=== PATIENT | male | born 1965 | race Caucasian/White ===

== ENCOUNTER 2024-05-06 08:57 | Emergency (ER) | payer BC ==
--- NOTE | 2024-05-06 10:25 | RAD REPORT ---
EXAM: XR Knee Left 3 View HISTORY: [facility] Bed Name: 14 COMPARISON: None TECHNIQUE: 3 views of the left knee were obtained. FINDINGS: No knee effusion is seen. There is no evidence of acute fracture or dislocation. Moderate tricompartmental degenerative changes with joint space loss most pronounced along the medial weightbearing compartment. Cortical irregularity at the tibial tuberosity suggesting remote sequelae of [place]-Schlatter's disease. No soft tissue swelling or other soft tissue abnormality is present. IMPRESSION: No evidence of acute osseous abnormality. Chronic findings as above.
--- NOTE | 2024-05-06 10:42 | EDPHYS ---
Physician Documentation [facility] Name: Gualberto Breaux Age: 58 yrs Sex: Male : 1965 Arrival Date: 05/06/2024 Time: 08:57 Bed 14 Private MD: ED Physician Bhanu Ballesteros HPI: 05/06 10:15 This 58 yrs old Male presents to ER via Ambulatory with complaints of Knee dr5 Pain - left. 10:15 Onset: The symptoms/episode began/occurred 4 day(s) ago. Patient is a 58 year old male dr5 presenting with left knee pain that's been going on for the past four days after he stood up incorrectly and twisted to the left. Patient reports that his pain is on the outside of the knee and is having issue extending the left leg. Patient reports he has had surgery on his left knee back in 1989 for a torn MCL. Patient reports he has been using crutches and wearing a knee brace with comfort. Patient has an appointment on 05/09/24 with PCP.. Historical: - Allergies: 09:11 No Known Allergies; ss - Home Meds: 09:11 Metformin [Active]; ss - PMHx: 09:11 Diabetes mellitus; ss - PSHx: 09:11 L knee; ss - Infectious Disease History:: Denies. - Social history:: Smoking status: Patient denies any tobacco usage or history of. Patient/guardian denies using alcohol. ROS: 10:15 Constitutional: as per hpi dr5 Exam: 10:15 Constitutional: This is a well developed, well nourished patient who is awake, alert, dr5 and in no acute distress. Head/Face: Normocephalic, atraumatic. Eyes: Pupils equal round and reactive to light, extra-ocular motions intact. Lids and lashes normal. Conjunctiva and sclera are non-icteric and not injected. Cornea within normal limits. Periorbital areas with no swelling, redness, or edema. Neck: Trachea midline, no thyromegaly or masses palpated, and no cervical lymphadenopathy. Supple, full range of motion without nuchal rigidity, or vertebral point tenderness. No Meningismus. Chest/axilla: Normal chest wall appearance and motion. Nontender with no deformity. No lesions are appreciated. Cardiovascular: Regular rate and rhythm with a normal S1 and S2. Normal PMI, no JVD. No pulse deficits. Respiratory: Lungs have equal breath sounds bilaterally, clear to auscultation. No rales, rhonchi or wheezes noted. No increased work of breathing, no retractions or nasal flaring. Back: No spinal tenderness. No costovertebral tenderness. Full range of motion. Skin: Warm, dry with normal turgor. Normal color with no rashes, no lesions, and no evidence of cellulitis. Neuro: Awake and alert, GCS 15, oriented to person, place, time, and situation. Cranial nerves II-XII grossly intact. Motor strength 5/5 in all extremities. Sensory grossly intact. Cerebellar exam normal. Normal gait. 10:15 Musculoskeletal/extremity: Extremities: grossly normal except: noted in the left knee: swelling, tenderness, Negative anterior / posterior drawer test. Patient is able to bear weight on left leg. Patient is able to range leg completely with pain on extension. Sensation intact. No swelling / effusion noted on exam., Vital Signs: 09:09 BP 130 / 82; Pulse 67; Resp 16; Temp 98(O); Pulse Ox 99% on R/A; Weight 106.14 kg; ss Height 6 ft. 2 in. ; Pain 3/10; 09:09 Body Mass Index 30.04 (106.14 kg, 187.96 cm) ss 09:09 Pain Scale: Adult ss Procedures: 12:28 Splinting: Splint applied to left knee using Knee Brace. applied by nurse. Examined by [facility] me, post splint application: neurovascular intact, 2+ distal pulses palpable, brisk capillary refill noted, Patient tolerated well. MDM: 09:03 Medical Screening Exam initiated dr5 10:15 ED course: Plan to x-ray left knee, make a CD and print out results with discharge for dr5 him to take with him to his appointment on , knee brace, and continue crutches.. 10:47 Differential diagnosis: abrasion, contusion, fracture, sprain, strain. Data reviewed: [facility] vital signs, nurses notes, radiologic studies, plain films. 12:28 I considered the following discharge prescriptions or medication management in the [facility] emergency department Narcotis not prescribed in ER due to patient driving.. Care significantly affected by the following chronic conditions: Diabetes. Care significantly affected by the following Social Determinants of Health: Poor access to healthcare and/or lack of insurance, Poor access to transportation, Problems related to employment. Counseling: I had a detailed discussion with the patient and/or guardian regarding the historical points, exam findings, and any diagnostic results supporting the discharge/admit diagnosis, the presence of at least one elevated blood pressure reading (>120/80) during this emergency department visit, the need for outpatient follow up, for definitive care, a family practitioner, a orthopedic surgeon, to return to the emergency department if symptoms worsen or persist or if there are any questions or concerns that arise at home. ED course: CD printed and given to patient with report printed out. Brace applied in ER. Patient will follow up on as planned. All questions answered. Strict ER precautions given.. 05/06 09:12 Order name: Knee Left 3 View XRAY; Complete Time: 10:33 dr5 05/06 09:51 Order name: Knee Immobilizer: Knee Brace Please; Complete Time: 10:23 dr5 Administered Medications: No medications were administered Disposition: 14:03 I was immediately available on-site in the Emergency Department for consultation in the ms3 care of the patient. Disposition Summary: 05/06/24 10:41 Discharge Ordered Notes: Location: Home dr5 Condition: Stable dr5 Diagnosis - Pain in left knee dr5 Followup: dr5 - With: Emergency Department - When: As needed - Reason: Worsening of condition Followup: dr5 - With: Private Physician - When: 1 - 2 days - Reason: Recheck today's complaints, Continuance of care, Re-evaluation by your physician Discharge Instructions: - Discharge Summary Sheet dr5 - How to Use a Knee Brace dr5 - Acute Knee Pain, Adult dr5 Forms: - Medication Reconciliation Form dr5 - Prescription Opioid Use dr5 - Patient Portal Instructions dr5 - Leadership Thank You Letter dr5 Prescriptions: - Ibuprofen 800 mg Oral Tablet - take 1 tablet ORAL route every 8 hours As needed take with food; 30 tablet; dr5 Refills: 0, Product Selection Permitted - Tramadol 50 mg Oral Tablet - take 1 tablet ORAL route every 8 hours as needed; 12 tablet; Refills: 0, dr5 Product Selection Permitted Signatures: Dispatcher [employer] EDMS Mirta Washington RN RN ss Sims, Marcus, DO DO ms3 Shorty Kraus, MANAGER FINANCE-C MANAGER FINANCE-Cdr5 Corrections: (The following items were deleted from the chart) 10:21 10:15 ED course: Plan to x-ray left knee, make a CD and print out results with dr5 discharge for him to take with him on . dr5
--- NOTE | 2024-05-06 10:42 | ER ---
Nurse's Notes [facility] Name: Gualberto Breaux Age: 58 yrs Sex: Male : 1965 Arrival Date: 05/06/2024 Time: 08:57 Bed 14 Private MD: Diagnosis: Pain in left knee Presentation: 05/06 09:09 Chief complaint: Patient states: L knee pain that began after standing up. ss Coronavirus screen: Client denies travel out of the [place] in the last 14 days. Ebola Screen: Patient denies exposure to infectious person. Patient denies travel to an Ebola-affected area in the 21 days before illness onset. Initial Sepsis Screen: Does the patient meet any 2 criteria? No. Patient's initial sepsis screen is negative. Does the patient have a suspected source of infection? No. Patient's initial sepsis screen is negative. Risk Assessment: Do you want to hurt yourself or someone else? Patient reports no desire to harm self or others. Onset of symptoms was May 02, 2024. 09:09 Method Of Arrival: Ambulatory ss 09:09 Acuity: ERNIE 4 ss Triage Assessment: 09:11 General: Appears in no apparent distress. comfortable, Behavior is calm, cooperative, ss Denies fever. Pain: Complains of pain in posterior aspect of left knee and left knee Pain currently is 3 out of 10 on a pain scale. at worst was 10 out of 10 on a pain scale. Is continuous, Aggravated by increased activity, repositioning, weight bearing. Neuro: Level of Consciousness is awake, alert, obeys commands, Oriented to person, place, time, situation. Respiratory: Airway is patent Respiratory effort is even, unlabored, Respiratory pattern is regular, symmetrical. Derm: Skin is pink, warm \T\ dry. normal. Historical: - Allergies: 09:11 No Known Allergies; ss - Home Meds: 09:11 Metformin [Active]; ss - PMHx: 09:11 Diabetes mellitus; ss - PSHx: 09:11 L knee; ss - Infectious Disease History:: Denies. - Social history:: Smoking status: Patient denies any tobacco usage or history of. Patient/guardian denies using alcohol. Screenin:48 [facility] ED Fall Risk Assessment (Adult) History of falling in the last 3 months, ap3 including since admission Yes- single mechanical fall (1 pt) Confusion or Disorientation No (0 pts) Intoxicated or Sedated No (0 pts) Impaired Gait No (0 pts) Mobility Assist Device Used No (0 pt) Altered Elimination No (0 pt) Score/Fall Risk Level 0 - 2 = Low Risk Oriented to surroundings, Maintained a safe environment, Educated pt \T\ family on fall prevention, incl call for assistance when getting out of bed, Assessed \T\ reinforced patient's understanding of fall precautions, Hourly rounding (assess needs \T\ fall precautionary measures) done, Used ambulatory aids as needed (educated on \T\ assisted with). Abuse screen: Denies threats or abuse. Nutritional screening: No deficits noted. Tuberculosis screening: No symptoms or risk factors identified. Assessment: 09:47 General: Appears in no apparent distress. Behavior is calm, cooperative, appropriate ap3 for age. Pain: Complains of pain in left knee Pain currently is 3 out of 10 on a pain scale. Neuro: Level of Consciousness is awake, alert, obeys commands, Oriented to person, place, time, situation, Appropriate for age. Cardiovascular: Patient's skin is warm and dry. Respiratory: Airway is patent Respiratory effort is even, unlabored, Respiratory pattern is regular, symmetrical. 10:49 Reassessment: Patient appears in no apparent distress at this time. Patient and/or ss family updated on plan of care and expected duration. Pain level reassessed. Patient is alert, oriented x 3, equal unlabored respirations, skin warm/dry/pink. Vital Signs: 09:09 BP 130 / 82; Pulse 67; Resp 16; Temp 98(O); Pulse Ox 99% on R/A; Weight 106.14 kg; ss Height 6 ft. 2 in. ; Pain 04/29; 09:09 Body Mass Index 30.04 (106.14 kg, 187.96 cm) ss 09:09 Pain Scale: Adult ss ED Course: 09:00 Patient arrived in ED. im 09:02 Shorty Kraus FNP-C is PHCP. dr5 09:02 Bhanu Ballesteros DO is Attending Physician. dr5 09:11 Triage completed. ss 09:11 Arm band placed on right wrist. ss 09:38 Urszula Rios, JESSICA is Primary Nurse. ap3 09:42 Knee Left 3 View XRAY In Process Unspecified. EDMS 10:49 Patient has correct armband on for positive identification. Bed in low position. ss 10:49 No provider procedures requiring assistance completed. Patient did not have IV access ss during this emergency room visit. 10:49 Knee brace placed to L knee. ss Administered Medications: No medications were administered Medication: 10:49 VIS not applicable for this client. ss Outcome: 10:41 Discharge ordered by MD. dr5 10:49 Discharged to home ambulatory, ss 10:49 Condition: good 10:49 Discharge instructions given to patient, Instructed on discharge instructions, follow up and referral plans. medication usage, Demonstrated understanding of instructions, follow-up care, medications, Prescriptions given X 2, 10:50 Patient left the ED. ss Signatures: Dispatcher [employer] EDMT Mirta Washington RN RN Urszula Reynoso RN RN ap3 Shari Oates Dustin, SHEET COMBINING OPERATOR-C SHEET COMBINING OPERATOR-Cdr5
[2024-05-06 10:54] VITALS: BP 130/82; TEMP 98; O2SAT 99
== END 2024-05-06 10:50 | disposition home or self-care (01) ==
LOC: ER 08:57
DX: M25.562 Pain in left knee (principal)
CPT/HCPCS: 99283